=== PATIENT | male | born 1970 | race Caucasian/White ===

== ENCOUNTER 2017-06-15 02:44 | Inpatient (IN) | payer BC ==
[2017-06-15] MEDS ORDERED: Nitroglycerin 2% Ointment 1 INCH/1 GM Packet ONE (03:41)
[2017-06-15 03:50] LABS: #Basophils 0.1 thou/uL (0.0-0.2); #Eosinphils 0.3 thou/uL (0.0-0.7); #Lymphocytes 2.7 thou/uL (1.20-3.40); #Monocytes 1.2 thou/uL (0.11-0.59); #Neutrophils 6.3 thou/uL (1.40-6.50); %Basophils 0.7 % (0.0-1.0); %Lymphocytes 25.4 % (21.0-51.0); %Monocytes 11.7 % (0.0-10.0); Hematocrit 48.2 % (42.0-52.0); Mean Platelet Volume 6.9 fL (7.4-10.4); Red Blood Cell (RBC) Count 4.97 mill/uL (4.70-6.10); White Blood Cell (WBC) Count 10.6 thou/uL (4.8-10.8)
[2017-06-15 04:15] LABS: ALT (SGPT) 131 U/L (8-55); AST (SGOT) 82 U/L (5-34); Alkaline Phosphatase 64 U/L (40-150); Anion Gap 14 mmol/L (10-20); BUN (Urea Nitrogen) 14 mg/dL (8.9-20.6); Bilirubin, Total 0.4 mg/dL (0.2-1.2); CK (CPK) 408 U/L (30-200); Calc. Creatinine Clearance 0 mL/min (70-130); Calcium 9.2 mg/dL (7.8-10.44); Carbon Dioxide 25 mmol/L (22-29); Chloride 105 mmol/L (98-107); Estimated GFR-MDRD Greater than 90; Protein, Total 7.2 g/dL (6.0-8.3)
[2017-06-15 04:28] LABS: Troponin I 2.134 ng/mL (< 0.028)
[2017-06-15] MEDS ORDERED: Acetaminophen 325 MG TAB PO PRN (07:55)
[2017-06-15] MEDS ORDERED: Zolpidem Tartrate 5 MG TAB PO PRN (07:55)
[2017-06-15] MEDS ORDERED: Ondansetron HCl/PF 4 MG/2 ML Vial IVP PRN (07:55)
[2017-06-15] MEDS ORDERED: Nitroglycerin 0.4 MG TAB (25 Tab Bottle) PO PRN (07:55)
[2017-06-15] MEDS ORDERED: Ondansetron ODT 4 MG TAB PO PRN (07:55)
[2017-06-15 08:02] LABS: Troponin I 7.143 ng/mL (< 0.028)
[2017-06-15 08:09] VITALS: BMI 24.1
--- NOTE | 2017-06-15 08:53 | HP ---
ADMITTING PHYSICIAN: Dr. Eliu Guzman HISTORY OF PRESENT ILLNESS: The patient is a 46-year-old male who has noted a 3 week history of inte rmittent chest pain and discomfort. He had multiple episodes of chest pain prior to bringing himself to the ER due to increased severe chest pain associated with some nausea, he does not really report any vomiting. He was seen and evaluated in the emergency room and it was determined he was having an acute coronary syndrome. He was given p.o. nitroglycerin. He states he is now feeling better with no further chest pain. He has no history of atherosclerotic coronary artery disease. There is a family history of atherosclerotic coronary artery disease in his mother. Otherwise, no other medical complaints are noted. As noted, he does have a history of chest pain for approximately 3 weeks prior to this, he had noted multiple episodes of stuttering type pain without radiation, but noted they have gradually gotten worse over time. At this time, he is currently feeli ng well. He has not noted any fever. ALLERGIES: He is allergic to CODEINE. PAST MEDICAL HISTORY: Positive for multiple lower back problems, some esophageal reflux disease. SURGICAL HISTORY: Positive for lymph node removal from the neck. SOCIAL/PERSONAL HISTORY: He is . He does not smoke and he drinks alcohol occasionally. FAMILY HISTORY: Positive for atherosclerotic coronary artery disease in his parents. REVIEW OF SYSTEMS: GASTROINTESTINAL: Negative. GENITOURINARY: Negative. CARDIOVASCULAR: Positive as above. RESPIRATORY: Negative. NEURO: Neurological is otherwise negative. PHYSICAL EXAMINATION: VITAL SIGNS: Pulse 68, respirations 18, temperature 97.8, O2 sats 99% on 2 liters. GENERAL: He is alert, active, in no acute distress. HEENT: Normocephalic, atraumatic. Extraocular muscles are intact. Sclerae and conjunctivae clear. Throat clear. NECK: Supple, full range of motion, no masses. LUNGS: Clear. HEART: Regular rate and rhythm without murmurs, gallops or rubs. ABDOMEN: Soft, nontender, bowel sounds are active. No hepatosplenomegaly is noted. There is no luisa dence of rebound or guarding. EXTREMITIES: No clubbing, edema or cyanosis noted at this time. NEUROLOGICAL: He is alert and intact and oriented x3. Cranial nerves II-XII are intact. LABORATORY: His hemoglobin 16.4, hematocrit 48.2. Sodium 140, potassium 4.2, chloride 105, CO2 25, BUN 14, creatinine 0.86. Troponin was 2.134, CK-MB is 38.1. EKG reveals sinus rhythm without evidence of acute changes, however. IMPRESSION: Acute non-ST segment elevated myocardial infarction. PLAN: The patient has been admitted. His pain has now been controlled. We will await Cardiology in tervention. I have discussed the findings with the patient and he is in agreement with intervention per Cardiology. I have discussed the possibility of catheterization with him, he once again verbaliz ed understanding. We will maintain on current medications at this time.
[2017-06-15] MEDS ORDERED: Enoxaparin Sodium 80 MG/0.8 ML SYRINGE SC SCH (09:00)
[2017-06-15] MEDS ORDERED: Metoprolol Tartrate 25 MG TAB PO SCH (09:00)
[2017-06-15 10:34] LABS: Troponin I 10.709 ng/mL (< 0.028)
[2017-06-15] MEDS ORDERED: Heparin 1000 UNIT/NS 500ML(OR) 1,000 ML ONE (11:01)
[2017-06-15] MEDS ORDERED: Communication Order-Pharmacy FS SCH (11:15)
--- NOTE | 2017-06-15 11:30 | CON ---
DATE OF CONSULTATION: 06/15/2017 REASON FOR CONSULTATION: Non-ST elevation myocardial infarction. HISTORY OF PRESENT ILLNESS: Mr. Sanchez is a 46-year-old man with a non-ST elevation infarction. Mr Kenny Sanchez was in his usual state of good health yesterday evening and early this morning when he had the onset of substernal chest pain and pain in the right upper chest. He went to a local emergency r oom and was found to have unstable angina and was transferred here. Patient had multiple episodes of chest pain prior to going to the emergency room and had nausea. He was transferred here, he has been found to have a non-ST elevation infarction. The patient has ac tually been pain free here until about 50 minutes ago, he said he is starting to get some discomfort in his right upper chest again. He was given Lovenox in the outlying emergency room. ALLERGIES: CODEINE. PAST MEDICAL HISTORY: Lower back problems, no cardiac problems. SURGICAL HISTORY: Lymph node removal in the neck. SOCIAL HISTORY: No smoking. Occasional alcohol. FAMILY HISTORY: Coronary disease in his parents. REVIEW OF SYSTEMS: Constitutional: No significant weight gain or loss. Vision: No changes. Heari ng: No changes. Pulmonary: No cough or wheezing. Gastrointestinal: No nausea, vomiting, or diarr hea. Skin: No ashes. Neurologic: No unilateral weakness or numbness. Psychiatric: No unusual de pression or anxiety. Hematologic: No unusual bruising. Genitourinary: No burning with urination. Musculoskeletal: No unusual joint pains. PHYSICAL EXAMINATION: GENERAL: It is a 46-year-old man who is becoming uncomfortable due to the right upper chest discomfo rt. VITAL SIGNS: His blood pressure is 118/81, pulse 70. HEENT: Eyes: Sclerae nonicteric. Mouth mucous membranes moist. NECK: Supple, no lymphadenopathy. LUNGS: Clear, no wheezing, rales or rhonchi. CARDIAC: Normal S1, normal S2. There is no murmur, rub or gallop. ABDOMEN: Soft, nontender. EXTREMITIES: No clubbing, cyanosis or edema. SKIN: Warm and dry. PSYCHIATRIC: Mood and affect normal. NEUROLOGIC: Grossly normal. Good femoral and posterior tibial and dorsalis pedis pulse on the right . PERTINENT LABORATORY: The EKG was normal. The troponin levels have been rising, at 3:39 a.m. it was 2.1 and at 7:09 it was 7.14 and most recent 10.7. ASSESSMENT: 1. Non-ST elevation myocardial infarction with recurrent chest pain. 2. Increased blood sugar this morning, probably related to the stress of the situation. 3. Positive family history of coronary disease. PLAN: Proceed to cardiac catheterization and indicated procedures. Discussed risks, stroke, heart a ttack, iodine allergy, loss of blood supply to the leg or kidney, stent thrombosis, stent restenosis. The patient understands and wishes to proceed.
[2017-06-15] MEDS ORDERED: Fentanyl 100 MCG/2 ML VIAL ONE ×2 (11:31→16:51)
[2017-06-15] MEDS ORDERED: Midazolam HCl 2 mg/2 ml Vial ONE (11:32)
[2017-06-15] MEDS ORDERED: Nitroglycerin 100MG/250ML BOT 250 ML ONE (11:38)
[2017-06-15] MEDS ORDERED: FLU VACC QS2017-18 36 mo. & older 0.5 ML SYRINGE IM ONE (12:00)
[2017-06-15] MEDS ORDERED: Metoprolol Tartrate 5 MG/5 ML VIAL ONE (12:04)
[2017-06-15] MEDS ORDERED: Heparin 10,000 UNITS/1 ML VIAL ONE ×2 (12:05→13:14)
[2017-06-15] MEDS ORDERED: Heparin 1000 UNIT/NS 500ML(OR) 500 ML ONE (12:17)
[2017-06-15] MEDS ORDERED: TICAGRELOR 90 MG TABLET ONE (12:17)
[2017-06-15] MEDS ORDERED: Milk Of Magnesia 30 ML UDCUP PO PRN (13:32)
[2017-06-15] MEDS ORDERED: Nitroglycerin 0.4 MG TAB (25 Tab Bottle) ONE (16:03)
[2017-06-15] MEDS ORDERED: Iopamidol 370 76% 50 ML VIAL FS ONE (16:15)
[2017-06-15] MEDS ORDERED: Iopamidol 370 76% 100 ML VIAL ONE (16:15)
[2017-06-15] MEDS: Sodium Chloride 0.9% 1,000 ML IV SCH (18:18)
[2017-06-15] MEDS: TICAGRELOR 90 MG TABLET PO SCH (19:59)
[2017-06-15] MEDS: Metoprolol Tartrate 25 MG TAB PO SCH (20:00)
[2017-06-15] MEDS: Famotidine 20 MG TAB PO SCH (20:02)
[2017-06-16] MEDS: Sodium Chloride 0.9% 1,000 ML IV SCH ×2 (01:26→10:46)
[2017-06-16 05:09] LABS: #Eosinphils 0.1 thou/uL (0.0-0.7); #Lymphocytes 2.5 thou/uL (1.20-3.40); #Monocytes 1.1 thou/uL (0.11-0.59); #Neutrophils 5.5 thou/uL (1.40-6.50); %Basophils 0.1 % (0.0-1.0); %Eosinophils 1.3 % (0.0-10.0); %Lymphocytes 27.1 % (21.0-51.0); %Monocytes 12.2 % (0.0-10.0); Hematocrit 44.8 % (42.0-52.0); Mean Platelet Volume 7.4 fL (7.4-10.4); White Blood Cell (WBC) Count 9.3 thou/uL (4.8-10.8)
[2017-06-16 05:14] LABS: ALT (SGPT) 106 U/L (8-55); AST (SGOT) 91 U/L (5-34); Alkaline Phosphatase 57 U/L (40-150); Anion Gap 9 mmol/L (10-20); BUN (Urea Nitrogen) 13 mg/dL (8.9-20.6); Bilirubin, Total 0.8 mg/dL (0.2-1.2); Calc. Creatinine Clearance 102 mL/min (70-130); Calcium 9.1 mg/dL (7.8-10.44); Carbon Dioxide 30 mmol/L (22-29); Chloride 105 mmol/L (98-107); Cholesterol 205 mg/dl (< 200 Desired); Estimated GFR-MDRD 80; Globulin 2.7 g/dL (2.4-3.5); LDL Cholesterol, Calculated 137 mg/dL; Protein, Total 6.5 g/dL (6.0-8.3)
[2017-06-16 08:04] LABS: Troponin I 14.056 ng/mL (< 0.028)
[2017-06-16] MEDS ORDERED: Lisinopril 2.5 MG TAB PO SCH ×2 (09:00→13:17)
[2017-06-16] MEDS: Famotidine 20 MG TAB PO SCH ×2 (09:19→21:12)
[2017-06-16] MEDS: Metoprolol Tartrate 25 MG TAB PO SCH (09:20)
[2017-06-16] MEDS: TICAGRELOR 90 MG TABLET PO SCH ×2 (09:20→21:12)
[2017-06-16] MEDS ORDERED: Lisinopril 5 MG TAB PO SCH (13:30)
[2017-06-16 14:16] LABS: Hemoglobin A1c 5.1 % (4.0-6.0)
--- NOTE | 2017-06-16 15:52 | PRG ---
DATE OF SERVICE: 06/16/2017. SUBJECTIVE: Mr. Ivy is doing much better today. He has noted back pain. He is up, walking aroun d, feels well. He has no chest pain. OBJECTIVE: VITAL SIGNS: Blood pressure 140/85, pulse 60, it is regular. LUNGS: Clear. CARDIAC: Normal S1, normal S2. ABDOMEN: Soft, nontender. EXTREMITIES: There is no edema. ASSESSMENT: 1. Status post myocardial infarction with subsequent percutaneous stent implantation. 2. Peak troponin level 14. 3. LDL cholesterol 137, triglyceride 175, total cholesterol 205 this morning with some increased luz er function test, which I suspect this is probably cardiac. PLAN: 1. Aspirin 81 mg a day. 2. Brilinta 90 mg twice a day. 3. Lisinopril 5 mg a day. 4. Metoprolol 25 mg twice a day or metoprolol succinate 50 mg a day. Plan is to be released home to [place]. We will go ahead and start moderate dose statin therapy and recheck liver function tests as an outpatient.
--- NOTE | 2017-06-16 17:49 | PRG ---
DATE OF SERVICE: 06/16/2017 HISTORY OF PRESENT ILLNESS: The patient is status post cardiac catheterization, tolerated the proced ure well, has ambulated after required rest, denies any chest pain, shortness of breath. Has a good appetite, has urinated. Blood glucoses have returned to normal, is compliant with postoperative medi cations, eager to go home. Nursing staff is reporting that spouse is very concerned about 's mental status. He has been extremely anxious in the last coming months. was not interested in talking about the subject at the bedside. States everything is fine. He is concerned, however, a bout a work release. POSTOPERATIVE LABORATORY DATA: Reviewed. Hemoglobin of 15.0, platelet count of 264. Sodium of 139, potassium of 4.7, CO2 of 30, creatinine of 1.0, A1c of 5.1, calcium of 9.1, AST of 91, ALT of 106. Triglycerides of 175, cholesterol total of 205, HDL 33, LDL of 137. Albumin of 3.8. PHYSICAL EXAMINATION: GENERAL: The patient is alert and oriented, in no acute distress. HEENT: Normocephalic, atraumatic. Extraocular movements are intact. Sclerae are clear. Oral mucos a is moist. NECK: Supple, nontender. HEART: Regular rate and rhythm. No murmurs are auscultated. LUNGS: Clear to auscultation bilaterally. No rubs or wheezes. ABDOMEN: Soft, nontender, positive bowel sounds throughout. EXTREMITIES: Lower extremities are without cyanosis or edema. NEUROLOGIC: The patient is alert and oriented x3, no focal deficits. Speech is normal. Affect is f lat. No disorganized thought process. ASSESSMENT: Non-ST elevation myocardial infarction and anxiety. PLAN: Discharge likely for home tomorrow following initiation of postoperative medications. We will leave work release to Cardiology. At this point in time, the patient does not seem interested in an xiety medications; however, we will discuss with Dr. Keith bal tomorrow to further discuss with leanna members. Likely, will need to follow up with this in regard to the patient's PCP, Dr. Eliu Guzman in clinic if he continues to have mood disturbance following resolution of his general medical condition, We will continue to follow.
[2017-06-16] MEDS ORDERED: Atorvastatin Calcium 20 MG TAB PO SCH (21:00)
[2017-06-16] MEDS ORDERED: Atorvastatin Calcium 40 MG TAB PO SCH ×2 (21:00)
[2017-06-17 06:37] LABS: ALT (SGPT) 73 U/L (8-55); AST (SGOT) 39 U/L (5-34); Alkaline Phosphatase 52 U/L (40-150); Anion Gap 10 mmol/L (10-20); BUN (Urea Nitrogen) 14 mg/dL (8.9-20.6); Bilirubin, Total 0.7 mg/dL (0.2-1.2); Calc. Creatinine Clearance 101 mL/min (70-130); Calcium 9.4 mg/dL (7.8-10.44); Carbon Dioxide 29 mmol/L (22-29); Chloride 106 mmol/L (98-107); Estimated GFR-MDRD 75; Globulin 2.6 g/dL (2.4-3.5); Protein, Total 6.4 g/dL (6.0-8.3)
[2017-06-17 08:56] VITALS: TEMP 97.6
[2017-06-17] MEDS: TICAGRELOR 90 MG TABLET PO SCH (08:57)
[2017-06-17] MEDS: Famotidine 20 MG TAB PO SCH (08:58)
[2017-06-17] MEDS ORDERED: Lisinopril 5 MG TAB PO SCH (09:00)
[2017-06-17 12:24] VITALS: BP 120/73
--- NOTE | 2017-06-17 15:59 | DIS ---
DATE OF ADMISSION: 06/15/2017 DATE OF DISCHARGE: 06/17/2017 ADMISSION DIAGNOSES: Acute non-ST elevated myocardial infarction. DISCHARGE DIAGNOSES: 1. Non-ST elevated myocardial infarction. 2. Elevated liver function tests. CONSULTS: Gagan Jarvis M.D., Cardiology. PROCEDURES: Heart catheterization with PCI. HOSPITAL COURSE: This is a 46-year-old male with no previous cardiac history who presented to the emergency room with several weeks of intermittent chest pain, discomfort. It had increased t o severe level causing him to come to the ER. He was found to have elevated troponins and diagnosed with an NSTEMI. Dr. Jarvis took the patient to cardiac asset availability leader and performed PCI. Postoperatively, the patient feel s much better. He denies chest pain at this time. As for elevated liver function tests, this can be further evaluated after hospital stay. This could be a transient elevation due to a cardiac cause. DISCHARGE MEDICATIONS: 1. Aspirin 81 mg p.o. daily. 2. Atorvastatin 20 mg p.o. at bedtime. 3. Lisinopril 5 mg p.o. daily. 4. Metoprolol succinate 50 mg p.o. daily. 5. Brilinta 90 mg p.o. b.i.d. DISPOSITION: Stable. DISCHARGE INSTRUCTIONS: 1. Discharged to home. 2. Diet: Heart healthy. 3. Activity: ad rojas. 4. Followup: Follow up with Dr. Guzman in 7-10 days. Follow up with Dr. Jarvis in 2 weeks. Follow up with cardiac rehabilitation as scheduled.
== END 2017-06-17 11:48 | disposition home or self-care (01) | DRG 247 ==
LOC: ERS 02:44 → ERHOLD 03:30 → OBSVTOIN 03:30 → IMCU/EMU 06:45 → 2NO 06-16 15:28
PROVIDERS: ADMIT Family Medicine; ATTEND Family Medicine
PROC: 027034Z Dilation of Coronary Artery, One Artery with Drug-eluting Intraluminal Device, Percutaneous Approach (ICD-10-PCS; principal; 2017-06-15)
PROC: 4A023N7 Measurement of Cardiac Sampling and Pressure, Left Heart, Percutaneous Approach (ICD-10-PCS; 2017-06-15)
PROC: B2111ZZ Fluoroscopy of Multiple Coronary Arteries using Low Osmolar Contrast (ICD-10-PCS; 2017-06-15)
PROC: B2151ZZ Fluoroscopy of Left Heart using Low Osmolar Contrast (ICD-10-PCS; 2017-06-15)
DX: I21.4 Non-ST elevation (NSTEMI) myocardial infarction (principal); I25.119 Atherosclerotic heart disease of native coronary artery with unspecified angina pectoris; R79.89 Other specified abnormal findings of blood chemistry; Z82.49 Family history of ischemic heart disease and other diseases of the circulatory system; R73.9 Hyperglycemia, unspecified
CPT/HCPCS: 36415; 76942; 80053; 80061; 82553; 83036; 84484; 85025; 85347; 92928; 93005; 93010; 93798; 94760; 96374; 99152; 99153; A4216; C1769; C1874; C1887; C9600; J1644; J2250; J3010

== ENCOUNTER 2020-01-31 07:51 | Emergency (ER) | payer BC ==
[2020-01-31 08:19] LABS: #Basophils 0.1 thou/uL (0.0-0.2); #Eosinphils 0.3 thou/uL (0.0-0.7); #Lymphocytes 1.7 thou/uL (1.20-3.40); #Monocytes 0.8 thou/uL (0.11-0.59); #Neutrophils 4.4 thou/uL (1.40-6.50); %Basophils 1.4 % (0.0-1.0); %Eosinophils 4.2 % (0.0-10.0); %Lymphocytes 23.6 % (21.0-51.0); %Monocytes 10.8 % (0.0-10.0); Hemoglobin 16.7 g/dL (14.0-18.0); Mean Corpuscular HGB CONC 34.2 g/dL (32.0-36.0); Mean Corpuscular Hemoglobin 32.9 pg (27.0-31.0); Mean Corpuscular Volume 96.3 fL (78.0-98.0); Mean Platelet Volume 7.5 fL (7.4-10.4); Platelet Count 296 thou/uL (130-400); RBC Distribution Width 11.6 % (11.5-14.5); Red Blood Cell (RBC) Count 5.08 mill/uL (4.70-6.10); White Blood Cell (WBC) Count 7.3 thou/uL (4.8-10.8)
--- NOTE | 2020-01-31 08:21 | RAD ---
EXAM: Chest PA and lateral: HISTORY: Chest pain COMPARISON: None FINDINGS: Heart: Normal cardiac silhouette Aorta: Unremarkable Pulmonary vessels: Normal Costophrenic angles: Costophrenic angles are clear. Lungs: No consolidation or masses. Pneumothorax: No pneumothorax Osseous structures: No osseous abnormalities IMPRESSION: No acute cardiopulmonary process.
[2020-01-31 08:40] LABS: ALT (SGPT) 209 U/L (8-55); AST (SGOT) 87 U/L (5-34); Albumin 4.4 g/dL (3.5-5.0); Alkaline Phosphatase 71 U/L (40-110); Anion Gap 13 mmol/L (10-20); BUN (Urea Nitrogen) 10 mg/dL (8.9-20.6); Bilirubin, Total 0.4 mg/dL (0.2-1.2); CK (CPK) 89 U/L (30-200); Calc. Creatinine Clearance 0 mL/min (70-130); Calcium 9.6 mg/dL (7.8-10.44); Carbon Dioxide 24 mmol/L (22-29); Chloride 105 mmol/L (98-107); Estimated GFR-MDRD 87; Globulin 2.8 g/dL (2.4-3.5); Glucose 117 mg/dL (70-105); Lipase 57 U/L (8-78); Potassium 3.9 mmol/L (3.5-5.1); Protein, Total 7.2 g/dL (6.0-8.3); Sodium 138 mmol/L (136-145)
[2020-01-31] MEDS ORDERED: Aspirin 325 MG TAB ONE (09:02)
[2020-01-31] MEDS ORDERED: Mag-Al 1200 mg/1200 mg/30 ML UDCUP ONE (09:52)
[2020-01-31] MEDS ORDERED: Lidocaine Viscous Sol 2% 15 ml UD Cup ONE (09:52)
[2020-01-31 12:05] LABS: Troponin I 0.015 ng/mL (< 0.028)
== END 2020-01-31 13:28 | disposition home or self-care (01) ==
LOC: ERS 07:51
DX: R07.89 Other chest pain (principal); K21.9 Gastro-esophageal reflux disease without esophagitis; I25.2 Old myocardial infarction; F41.9 Anxiety disorder, unspecified; F32.9 Major depressive disorder, single episode, unspecified; F17.220 Nicotine dependence, chewing tobacco, uncomplicated; Z79.82 Long term (current) use of aspirin; Z79.899 Other long term (current) drug therapy
CPT/HCPCS: 36415; 71046; 80053; 82550; 83690; 84484; 85025; 93005

== ENCOUNTER 2020-05-22 08:38 | Outpatient (CLI) | payer BC ==
--- NOTE | 2020-05-22 09:05 | ULT ---
Exam: Right upper quadrant ultrasound: HISTORY: Elevated liver function tests COMPARISON: None FINDINGS: Visualized liver:Coarse liver with increased echogenicity evidence for fatty change. Gallbladder:No evidence of gallstones, wall thickening, edema, or pericholecystic fluid. Common bile duct:Within normal limits. The visualized pancreas and right kidney are unremarkable. No evidence for abscess or abnormal fluid collection in the right upper quadrant. IMPRESSION: Coarse increased liver echogenicity evidence for fatty change.
== END 2020-05-22 08:39 | disposition home or self-care (01) ==
LOC: BICULT 08:38
PROVIDERS: ATTEND Internal Medicine Cardiovascular Disease
DX: R79.89 Other specified abnormal findings of blood chemistry (principal); R93.2 Abnormal findings on diagnostic imaging of liver and biliary tract
CPT/HCPCS: 76705

== ENCOUNTER 2021-02-08 10:47 | Emergency (ER) | payer BC ==
[2021-02-08] MEDS ORDERED: Iopamidol-370 76% 500 ML 1 ML ONE (10:59)
[2021-02-08 11:30] LABS: #Eosinphils 0.2 thou/uL (0.0-0.7); #Lymphocytes 1.5 thou/uL (1.20-3.40); #Monocytes 0.7 thou/uL (0.11-0.59); #Neutrophils 5.1 thou/uL (1.40-6.50); %Basophils 0.1 % (0.0-1.0); %Eosinophils 2.5 % (0.0-10.0); %Lymphocytes 20.3 % (21.0-51.0); %Monocytes 9.5 % (0.0-10.0); %Neutrophils 67.6 % (42.0-75.0); Mean Platelet Volume 7.3 fL (7.4-10.4); Platelet Count 322 thou/uL (130-400); RBC Distribution Width 11.5 % (11.5-14.5); Red Blood Cell (RBC) Count 5.62 mill/uL (4.70-6.10); White Blood Cell (WBC) Count 7.5 thou/uL (4.8-10.8)
[2021-02-08 11:52] LABS: ALT (SGPT) 96 U/L (8-55); AST (SGOT) 48 U/L (5-34); Albumin 4.8 g/dL (3.5-5.0); Alkaline Phosphatase 82 U/L (40-110); Anion Gap 13 mmol/L (10-20); BUN (Urea Nitrogen) 11 mg/dL (8.9-20.6); Bilirubin, Total 0.4 mg/dL (0.2-1.2); Calc. Creatinine Clearance 0 mL/min (70-130); Carbon Dioxide 20 mmol/L (22-29); Chloride 106 mmol/L (98-107); Globulin 3.5 g/dL (2.4-3.5); Glucose 94 mg/dL (70-105); Potassium 4.9 mmol/L (3.5-5.1); Protein, Total 8.3 g/dL (6.0-8.3); Sodium 134 mmol/L (136-145)
[2021-02-08] MEDS ORDERED: cefTRIAXone\\ROCEPHIN 1 GM VIAL ONE (12:26)
[2021-02-08] MEDS ORDERED: Ketorolac Tromethamine 30 MG/ML VIAL ONE (12:26)
[2021-02-08] MEDS ORDERED: Acyclovir 800 mg Tablet PO SCH (12:45)
[2021-02-08] MEDS ORDERED: Ondansetron PF 4 MG/2 ML Vial ONE (14:18)
[2021-02-08] MEDS ORDERED: Fentanyl 100 MCG/2 ML VIAL ONE (14:18)
== END 2021-02-08 14:45 | disposition home or self-care (01) ==
LOC: ERS 10:47
DX: B02.9 Zoster without complications (principal); K21.9 Gastro-esophageal reflux disease without esophagitis; I25.2 Old myocardial infarction; Z87.891 Personal history of nicotine dependence
CPT/HCPCS: 36415; 70487; 80053; 83605; 85025; 96365; 96375; J0696; J1885; J2405; J3010; Q9967

== ENCOUNTER 2024-06-17 10:25 | Outpatient (CLI) | payer BC | END 2024-06-17 10:26 | disposition home or self-care (01) | LOC: SCSRAD 10:25 | PROVIDERS: ATTEND Family Medicine | DX: M79.672 Pain in left foot (principal); M19.072 Primary osteoarthritis, left ankle and foot ==